=== PATIENT | male | born 1945 | race Caucasian/White ===

== ENCOUNTER 2020-09-21 10:44 | Outpatient (NON) | payer MEDICARE, OTHER, SELFPAY ==
[2020-09-22 01:42] LABS: SARS-CoV-2 RNA PCR Negative
== END 2020-09-21 10:45 ==
PROVIDERS: Visit Provider Physician Assistant
DX: R51.9 Headache, unspecified (principal); Z20.828 Contact with and (suspected) exposure to other viral communicable diseases
CPT/HCPCS: 87635; C9803; U0003